=== PATIENT | male | born 1950 | race African-American/Black ===

== ENCOUNTER 2017-09-20 10:01 | Emergency (ER) | payer MEDICARE, OTHER ==
[~2017-09-20] VITALS: Wt 75.0 kg
[~2017-09-20 10:01] MED LIST: AMOX500T PO; AZIT250T94 PO; CITA10TA72 PO; CLON2TAB3 PO; HYDR25TA6 PO; LEVE500T34 PO; LEVE750T8 PO; LORA-441 PO; OMEP20CA16 PO; TAMS0.4C2 PO; UDROBDM PO
== END 2017-09-20 11:11 | disposition left against medical advice (07) ==
LOC: FTE 10:01
DX: Z53.21 Procedure and treatment not carried out due to patient leaving prior to being seen by health care provider (principal)

== ENCOUNTER 2017-09-26 13:21 | Emergency (ER) | payer MEDICARE, OTHER ==
[~2017-09-26] VITALS: Ht 185.4 cm; Wt 71.4 kg
[2017-09-26 13:43] VITALS: Ht 185.4 cm; Wt 71.4 kg
--- NOTE | 2017-09-26 15:01 | ERD ---
ER Documentation Chief Complaint Chief Complaint abscess under left arm and on nose x 2 weeks HPI 67-year-old male presents emergency department for an abscess to his left arm. Stated that he started couple of months ago then got worse for the past few days. Denies headache, dizziness, blurry vision, neck pain, throat pain, difficulty swallowing, shoulder pain, chest pain, back pain, abdominal pain, nausea, vomiting, constipation, diarrhea, loss of bowel bladder control, changes in bowel and bladder habits, difficulty breathing when lying flat, urinary symptoms, difficulty walking, recent exposure to any illness, recent antibiotic use in the last 3 months, fever, chills, numbness or tingling sensation, trauma, injury, falls. Has past medical history of stroke, depression, hypertension. Stated that he has surgical history of craniotomy. ROS All systems reviewed and are negative except as per history of present illness. Medications Home Meds Active Scripts Hydrocodone/Acetaminophen (Independence 5-325 Tablet) 1 Each Tablet, 1 TAB PO Q6H Y for PAIN, #12 TAB Prov:GARCÍA MARINO 09/26/17 Cephalexin* (Keflex*) 500 Mg Capsule, 500 MG PO QID for 5 Days, CAP Prov:JAMILARANDYBETSY 09/26/17 Sulfamethoxazole/Trimethoprim* (Bactrim Ds* Tablet) 1 Each Tablet, 1 TAB PO BID , #14 TAB Prov:CHRISTLUISRANDYBETSY 09/26/17 Amoxicillin Trihydrate (Amoxicillin) 500 Mg Tablet, 500 MG PO Q8, #30 TAB [facility] 09/06/16 Guaifenesin-Dextromethorphan* (Robitussin* DM) 100MG/10MG/5ML Syrup, 5 ML PO Q6H Y for COUGH, #120 ML Prov[facility] 09/06/16 Clonazepam* (Clonazepam*) 2 Mg Tablet, 2 MG PO DAILY, #20 TAB [facility] 09/06/16 Levetiracetam* (Levetiracetam*) 750 Mg Tablet, 1500 MG PO BID, #60 TAB [facility] 09/06/16 Azithromycin* (Zithromax*) 250 Mg Tablet, 250 MG PO .JOHANA DIRECTED, #6 TAB TAKE 500 MG (2 TABS) THE FIRST DAY THEN 250 MG (1 TAB) DAYS 2-5 Prov:GEMINI WILSON PA-C 10/24/15 Reported Medications Tamsulosin Hcl* (Tamsulosin Hcl*) 0.4 Mg Cap.er.24h, 0.4 MG PO DAILY 03/12/13 Omeprazole* (Omeprazole*) 20 Mg Capsule.dr, 20 MG PO DAILY 03/12/13 Lorazepam* (Ativan*) 0.5 Mg Tablet, 0.5 MG PO DAILY 03/12/13 Levetiracetam* (Keppra XR*) 500 Mg Tab.sr.24h, 500 MG PO DAILY 03/12/13 Hydrochlorothiazide (Hydrochlorothiazide) 25 Mg Tablet, 25 MG PO DAILY 03/12/13 Clonazepam* (Clonazepam*) 2 Mg Tablet, 2 MG PO DAILY 03/12/13 Citalopram Hydrobromide* (Celexa*) 10 Mg Tablet, 20 MG PO DAILY 03/12/13 Allergies Allergies: Coded Allergies: No Known Drug Allergies (Verified Allergy, Unknown, 03/12/13) PMhx/Soc History of Surgery: Yes (BRAIN SX.) Anesthesia Reaction: No Hx Neurological Disorder: No (SEIZURES, CVA) Hx Respiratory Disorders: No Hx Cardiac Disorders: Yes (ANEURYSM) Hx Psychiatric Problems: Yes (DEPRESSION) Hx Miscellaneous Medical Probl: No Hx Alcohol Use: Yes (4 YEARS AGO) Hx Substance Use: No Hx Tobacco Use: Yes (cut down) Smoking Status: Current every day smoker Physical Exam Vitals Vital Signs Date Time Temp Pulse Resp B/P Pulse Ox O2 Delivery O2 Flow Rate FiO2 09/26/17 13:43 98.6 78 20 130/84 100 Physical Exam Const: Alert and oriented. Not in acute respiratory distress. Head: Atraumatic Eyes: Normal Conjunctiva ENT: Normal External Ears, Nose and Mouth. Neck: Full range of motion..~ No meningismus. Resp: Clear to auscultation bilaterally Cardio: Regular rate and rhythm, no murmurs Abd: Soft, non tender, non distended. Normal bowel sounds Skin: No petechiae or rashes. Left armpit has swelling and redness measuring approximately 4 cm x 4 cm in diameter, fluctuance. There is no bleeding. Back: No midline or flank tenderness Ext: No cyanosis, or edema. No neurovascular deficits. Neur: Awake and alert. No new neurological deficits.. Psych: Normal Mood and Affect Results 24 hrs Current Medications Medications (Trade) Dose Ordered Sig/Augustina Route PRN Reason Start Time Stop Time Status Last Admin Dose Admin Ceftriaxone Sodium (Rocephin) 1 gm ONCE ONCE IM 09/26/17 15:30 09/26/17 15:31 DC 09/26/17 15:11 Lidocaine (Xylocaine 1% (Mdv) 20 ml) 20 ml ONCE ONCE SC 09/26/17 15:30 09/26/17 15:31 DC 09/26/17 15:11 Acetaminophen/ Hydrocodone Bitart (Independence (10)) 1 tab ONCE ONCE PO 09/26/17 15:30 09/26/17 15:31 DC 09/26/17 15:12 Procedures/MDM Treatment: Ceftriaxone IM. Independence p.o. Procedure: Incision and drainage of abscess to left armpit. Betadine prep. Lidocaine 1% subcu 4 cc. Incision and drainage done. Drained greenish to yellowish discharge. Packed with iodoform. Dressing applied. Re-evaluation: Denies pain. No neurovascular deficits to left upper extremity. I have low suspicion for severe or serious bacterial infection given that the patient's vital signs is unremarkable, patient is not septic or toxic in appearance. I have low suspicion for a deep vein thrombosis given that the patient has no tenderness to the forearm and humeral area. Final diagnosis: Abscess with incision and drainage. Prescription: Bactrim. Keflex. Independence. Follow-up with PCP in 3-4 days. Come back here in the emergency department in 2 days for a wound check and possible removal of packing. Come back here in the emergency department for any new symptoms or any worsening of symptoms. All questions and concerns are answered. Patient and family member verbalized understanding and agreed with the plan of care. Hemodynamically stable on discharge. Departure Diagnosis: Primary Impression: Abscess Condition: Stable Additional Instructions: Follow-up with PCP in 3-4 days. Come back here in the emergency department in 2 days for a wound check and possible removal of packing. Come back here in the emergency department for any new symptoms or any worsening of symptoms. All questions and concerns are answered. Patient and family member verbalized understanding and agreed with the plan of care. GARCÍA MARINO Sep 26, 2017 15:01
[2017-09-26] MEDS ORDERED: SULF1TAB31 PO (15:04)
[2017-09-26] MEDS ORDERED: CEPH-443 PO (15:05)
[2017-09-26] MEDS ORDERED: HYDR-906 PO (15:05)
[2017-09-26] MEDS ORDERED: LIDOCAINE 1% (MDV) 20 ML INJ SC ONE (15:30)
[2017-09-26] MEDS ORDERED: HYDROCODONE/APAP (10/325) TAB PO ONE (15:30)
[2017-09-26] MEDS ORDERED: CEFTRIAXONE 1 GM INJ IM ONE (15:30)
== END 2017-09-26 16:55 | disposition home or self-care (01) ==
LOC: FTE 13:21
DX: L02.414 Cutaneous abscess of left upper limb (principal); F17.210 Nicotine dependence, cigarettes, uncomplicated
CPT/HCPCS: 10060; 96372; 99284; J0696

== ENCOUNTER 2017-09-28 14:00 | Emergency (ER) | payer MEDICARE, OTHER ==
[~2017-09-28] VITALS: Ht 185.4 cm; Wt 70.3 kg
[~2017-09-28 14:00] MED LIST changes: +CEPH-443 PO; +HYDR-906 PO; +SULF1TAB31 PO
[2017-09-28 14:07] VITALS: Ht 185.4 cm; Wt 70.3 kg
--- NOTE | 2017-09-28 15:16 | ERD ---
ER Documentation Chief Complaint Chief Complaint Wound check on left axilla, had I and D 2 days ago (ANTONIO PIERRE PA-C) HPI This is a 67-year-old male who presents to the emergency department today for wound check of a abscess he had drained in his left axilla couple of days ago. Denies any fevers or chills. States he is taking his antibiotics as prescribed. States he is here with his home health services provider. (ANTONIO PIERRE PA-C) ROS All systems reviewed and are negative except as per history of present illness. (ANTONIO PIERRE PA-C) Medications Home Meds Active Scripts Hydrocodone/Acetaminophen ([place] 5-325 Tablet) 1 Each Tablet, 1 TAB PO Q6H Y for PAIN, #12 TAB Prov:GARCÍA MARINO 09/26/17 Cephalexin* (Keflex*) 500 Mg Capsule, 500 MG PO QID for 5 Days, CAP Prov:GARCÍA MARINO 09/26/17 Sulfamethoxazole/Trimethoprim* (Bactrim Ds* Tablet) 1 Each Tablet, 1 TAB PO BID , #14 TAB Prov:GARCÍA MARINO 09/26/17 Amoxicillin Trihydrate (Amoxicillin) 500 Mg Tablet, 500 MG PO Q8, #30 TAB [facility] 09/06/16 Guaifenesin-Dextromethorphan* (Robitussin* DM) 100MG/10MG/5ML Syrup, 5 ML PO Q6H Y for COUGH, #120 ML Prov[facility] 09/06/16 Clonazepam* (Clonazepam*) 2 Mg Tablet, 2 MG PO DAILY, #20 TAB Prov[facility] 09/06/16 Levetiracetam* (Levetiracetam*) 750 Mg Tablet, 1500 MG PO BID, #60 TAB Prov:MANINDER,[facility] 09/06/16 Azithromycin* (Zithromax*) 250 Mg Tablet, 250 MG PO .ZPACK DIRECTED, #6 TAB TAKE 500 MG (2 TABS) THE FIRST DAY THEN 250 MG (1 TAB) DAYS 2-5 Prov:GEMINI WILSON PA-C 10/24/15 Reported Medications Tamsulosin Hcl* (Tamsulosin Hcl*) 0.4 Mg Cap.er.24h, 0.4 MG PO DAILY 03/12/13 Omeprazole* (Omeprazole*) 20 Mg Capsule.dr, 20 MG PO DAILY 03/12/13 Lorazepam* (Ativan*) 0.5 Mg Tablet, 0.5 MG PO DAILY 03/12/13 Levetiracetam* (Keppra XR*) 500 Mg Tab.sr.24h, 500 MG PO DAILY 03/12/13 Hydrochlorothiazide (Hydrochlorothiazide) 25 Mg Tablet, 25 MG PO DAILY 03/12/13 Clonazepam* (Clonazepam*) 2 Mg Tablet, 2 MG PO DAILY 03/12/13 Citalopram Hydrobromide* (Celexa*) 10 Mg Tablet, 20 MG PO DAILY 03/12/13 Allergies Allergies: Coded Allergies: No Known Drug Allergies (Verified Allergy, Unknown, 03/12/13) PMhx/Soc History of Surgery: Yes (BRAIN SX.) Anesthesia Reaction: No Hx Neurological Disorder: No (SEIZURES, CVA) Hx Respiratory Disorders: No Hx Cardiac Disorders: Yes (ANEURYSM) Hx Psychiatric Problems: Yes (DEPRESSION) Hx Miscellaneous Medical Probl: No Hx Alcohol Use: Yes (4 YEARS AGO) Hx Substance Use: No Hx Tobacco Use: Yes (cut down) (ANTONIO PIERRE PA-C) Physical Exam Vitals Vital Signs Date Time Temp Pulse Resp B/P Pulse Ox O2 Delivery O2 Flow Rate FiO2 09/28/17 15:30 77 16 125/69 99 Room Air 09/28/17 14:07 96.8 67 18 125/74 99 (AMBAR MATHEW DO) Physical Exam Const: NAD Head: Atraumatic Eyes: Normal Conjunctiva ENT: Normal External Ears, Nose and Mouth. Neck: Full range of motion..~ No meningismus. Resp: Clear to auscultation bilaterally Cardio: Regular rate and rhythm, no murmurs Abd: Soft, non tender, non distended. Normal bowel sounds Skin: Evidence of abscess and packing placed the left axilla. No erythema or warmth. Mild drainage. Back: No midline or flank tenderness Ext: No cyanosis, or edema Neur: Awake and alert Psych: Normal Mood and Affect (ANTONIO PIERRE PA-C) Procedures/MDM This a 67-year-old male who presents to the emergency department today for a wound check of an abscess that he had drained 2 days ago. Patient is here in the emergency department with his home health services provider. Upon review of patient's medical records patient had his home health services provider with him. I did remove the packing. There was mild purulent drainage from the area. There is no erythema or warmth. Is afebrile and otherwise well- appearing. Low suspicion for sepsis, cellulitis, deep space tracking infection. Patient was instructed to continue taking his antibiotics as prescribed the wound was redressed here in the emergency department. He was instructed to follow-up with his primary care doctor. At this time the patient is stable for discharge and outpatient management. Patient should follow up with their PCP in the next 1-2 days. They may return to the emergency department sooner for any persistent or worsening of symptoms. Patient and home health services provider understood and agreed with the plan. (ANTONIO PIERRE PA-C) I saw this patient in conjunction with the PA and agreed with packing removal and disposition. (AMBAR MATHEW DO) Departure Diagnosis: Primary Impression: Encounter for wound re-check Condition: Fair ANTONIO PIERRE PA-C Sep 28, 2017 15:16 AMBAR MATHEW DO Oct 02, 2017 15:07
[2017-09-28 15:30] VITALS: BP 125/69; PULSE 77; RESP 16
== END 2017-09-28 16:28 | disposition home or self-care (01) ==
LOC: FTE 14:00
DX: Z48.01 Encounter for change or removal of surgical wound dressing (principal); Z87.891 Personal history of nicotine dependence
CPT/HCPCS: 99281

== ENCOUNTER 2017-10-11 10:17 | Emergency (ER) | payer MEDICARE, OTHER ==
[~2017-10-11] VITALS: Ht 165.1 cm; Wt 76.0 kg
[2017-10-11 10:20] VITALS: Ht 165.1 cm; Wt 76.0 kg
[2017-10-11] MEDS ORDERED: CEPH-443 PO (13:30)
[2017-10-11] MEDS ORDERED: SULF1TAB31 PO (13:30)
[2017-10-11] MEDS ORDERED: MUPI22OI2 TOP (13:30)
--- NOTE | 2017-10-11 13:34 | ERD ---
ER Documentation Chief Complaint Chief Complaint WOUND CHECK LEFT AXILLA HPI 67-year-old male had an incision and drainage to the left axilla and is here for wound check due to drainage. The I&D was done on September 26, he was given a 5 day course of Keflex as well as a seven-day course of Bactrim. He reports some purulent drainage, this started about 1 day ago, but no fevers or chills. ROS All systems reviewed and are negative except as per history of present illness. Medications Home Meds Active Scripts Mupirocin* (Bactroban*) 2% -22 Gram Oint...g., 1 APPLIC TOP BID for 7 Days, EA Prov:GEMINI WILSON PA-C 10/11/17 Sulfamethoxazole/Trimethoprim* (Bactrim Ds* Tablet) 1 Each Tablet, 1 TAB PO BID , #14 TAB Prov:GEMINI WILSON PA-C 10/11/17 Cephalexin* (Keflex*) 500 Mg Capsule, 500 MG PO QID for 7 Days, CAP Prov:GEMINI WILSON PA-C 10/11/17 Hydrocodone/Acetaminophen ([place] 5-325 Tablet) 1 Each Tablet, 1 TAB PO Q6H Y for PAIN, #12 TAB Prov:GARCÍA MARINO 09/26/17 Cephalexin* (Keflex*) 500 Mg Capsule, 500 MG PO QID for 5 Days, CAP Prov:GARCÍA MARINO 09/26/17 Sulfamethoxazole/Trimethoprim* (Bactrim Ds* Tablet) 1 Each Tablet, 1 TAB PO BID , #14 TAB Prov:GARCÍA MARINO 09/26/17 Amoxicillin Trihydrate (Amoxicillin) 500 Mg Tablet, 500 MG PO Q8, #30 TAB Prov:CHRIS DICKENS DO 09/06/16 Guaifenesin-Dextromethorphan* (Robitussin* DM) 100MG/10MG/5ML Syrup, 5 ML PO Q6H Y for COUGH, #120 ML Prov:CHRIS DICKENS 09/06/16 Clonazepam* (Clonazepam*) 2 Mg Tablet, 2 MG PO DAILY, #20 TAB Prov:CHRIS DICKENS 09/06/16 Levetiracetam* (Levetiracetam*) 750 Mg Tablet, 1500 MG PO BID, #60 TAB Prov:CHRIS DICKENS DO 09/06/16 Azithromycin* (Zithromax*) 250 Mg Tablet, 250 MG PO .JOHANA DIRECTED, #6 TAB TAKE 500 MG (2 TABS) THE FIRST DAY THEN 250 MG (1 TAB) DAYS 2-5 Prov:GEMINI WILSON PA-C 10/24/15 Reported Medications Tamsulosin Hcl* (Tamsulosin Hcl*) 0.4 Mg Cap.er.24h, 0.4 MG PO DAILY 03/12/13 Omeprazole* (Omeprazole*) 20 Mg Capsule.dr, 20 MG PO DAILY 03/12/13 Lorazepam* (Ativan*) 0.5 Mg Tablet, 0.5 MG PO DAILY 03/12/13 Levetiracetam* (Keppra XR*) 500 Mg Tab.sr.24h, 500 MG PO DAILY 03/12/13 Hydrochlorothiazide (Hydrochlorothiazide) 25 Mg Tablet, 25 MG PO DAILY 03/12/13 Clonazepam* (Clonazepam*) 2 Mg Tablet, 2 MG PO DAILY 03/12/13 Citalopram Hydrobromide* (Celexa*) 10 Mg Tablet, 20 MG PO DAILY 03/12/13 Allergies Allergies: Coded Allergies: No Known Drug Allergies (Verified Allergy, Unknown, 03/12/13) PMhx/Soc History of Surgery: Yes (BRAIN SX.) Anesthesia Reaction: No Hx Neurological Disorder: No (SEIZURES, CVA) Hx Respiratory Disorders: Yes (bronchitis) Hx Cardiac Disorders: Yes (ANEURYSM) Hx Psychiatric Problems: Yes (DEPRESSION) Hx Miscellaneous Medical Probl: No (hep c) Hx Alcohol Use: Yes (4 YEARS AGO) Hx Substance Use: No Hx Tobacco Use: Yes (cut down) Physical Exam Vitals Vital Signs Date Time Temp Pulse Resp B/P Pulse Ox O2 Delivery O2 Flow Rate FiO2 10/11/17 10:20 98.1 68 18 154/96 99 Physical Exam General: Well-developed, well-nourished. The patient appears in no acute distress. HEENT: Head is normocephalic, atraumatic. No scleral icterus. Neck: Supple. Nontender. Lungs: Clear to auscultation. Normal air movement. Heart: Regular rate and rhythm. S1 and S2 are normal. No murmurs, gallops, or rubs. Abdomen: Nondistended. Extremities: No clubbing or cyanosis. Moving extremities x 4. No weakness. Neurologic: Alert and oriented 3. No focal deficits. Normal speech and gait. Skin: Left axilla has a 1 cm incision, there is no lymphatic streaking, there is purulent drainage, but no fluctuance. Procedures/MDM 67-year-old male comes in with an abscess wound check, there is some purulent drainage is appreciated on examination. With palpation there is mild tenderness but no warmth, no erythema or lymphatic streaking. The patient will be continued on a second course of Keflex and Bactrim and advised to apply Bactroban keep the area covered and do warm compresses. Recheck the wound in 2 days. Departure Diagnosis: Primary Impression: Abscess Additional Impression: Encounter for wound re-check Condition: Good Patient Instructions: Abscess, Incision And Drainage GEMINI WILSON PA-C Oct 11, 2017 13:34
== END 2017-10-11 13:46 | disposition home or self-care (01) ==
LOC: FTE 10:17
DX: L02.412 Cutaneous abscess of left axilla (principal); Z48.01 Encounter for change or removal of surgical wound dressing; Z87.891 Personal history of nicotine dependence
CPT/HCPCS: 99284